=== PATIENT | female | born 1960 | race Caucasian/White ===

== ENCOUNTER 2022-12-20 08:36 | Outpatient (CLI) | payer OTHER, SELFPAY ==
--- NOTE | 2022-12-20 08:15 | DI.RAD_ITS ---
Exam(s) XR KNEE LT 3V AP,LAT,EFREN EXAM: XR KNEE LT 3V AP,LAT,EFREN CLINICAL HISTORY: left knee pain. TECHNIQUE: 2D digital imaging was performed. Three views. COMPARISON: CR XR KNEE 4 VIEW LEFT from 12/22/2019 FINDINGS: BONES: No acute fracture is present. No bony destructive lesion is seen. JOINTS: There is a total knee prosthesis which has been placed since the previous exam. The alignmen t appears satisfactory. A small to moderate joint effusion is seen. SOFT TISSUE: Normal. IMPRESSION: Unremarkable knee prosthesis. Joint effusion. DATA REPOSITORY: RADIATION DOSE DELIVERED:
== END 2022-12-20 08:37 | disposition home or self-care (01) ==
LOC: DIORS 08:37
PROVIDERS: PCP Internal Medicine; Referring Provider Internal Medicine; Visit Provider Student in an Organized Health Care Education/Training Program
DX: Z96.652 Presence of left artificial knee joint (principal); M25.462 Effusion, left knee; Z47.1 Aftercare following joint replacement surgery
CPT/HCPCS: 73562